=== PATIENT | male | born 2000 | race Caucasian/White ===

== ENCOUNTER → 2020-01-03 | Day surgery (SDC) | payer BC ==
[~2020-01-03] MED LIST: Heparin 1,000 UNITS/ML VIAL ONE
--- NOTE | 2020-01-03 17:02 | SPC ---
Catheter venogram left arm: DATE: 01/03/2020 HISTORY: 19-year-old male with sudden onset of left upper extremity pain and swelling. Catheter venogram was o rdered to rule out central venous tear of the axillary vein. Dr. Jorge discussed the recommendation by telephone with Dr. Demetrius Ruano of [facility] at 4:40 PM 01/03/2020 TECHNIQUE: Signed informed consent obtained. Tourniquet applied at proximal left arm. Left arm prepped and drape d in usual sterile fashion. 25-gauge needle used to apply buffered lidocaine. Under ultrasound guidance, the basilic vein was punctured using micropuncture technique. The needle was exchanged over the guidewire for a 4 Scottish dilator and sheath. Dilator was removed, and the 4 Scottish sheath was connected via plastic tubing to a series of contrast-filled syringes. The 4 Scottish dilator was inject ed during fluoroscopy. The patient's left upper extremity was elevated to facilitate flow into the proximal, central veins. Catheter was removed. Compression was held at the puncture site until hemost asis was achieved. Patient tolerated procedure well. No complications. FINDINGS: The ultrasound images demonstrate a very dilated basilic vein. The double brachial veins are not sign ificantly dilated. There is contrast opacification of the basilic vein and axillary vein, and reflux into at least one o f the double brachial veins. There is no extravasation. Contrast opacification of the left subclavian vein was not achieved. IMPRESSION: 1. No tear, no extravasation of basilic vein or axillary vein. 2. Dilation of the basilic vein. 3. Nonopacification of the subclavian vein after 60 mL of contrast injection. This could be due to th e fact that contrast flow is very slow in venous structures. However, the possibility of spontaneous thrombosis of the left subclavian vein cannot be excluded. Recommend dedicated Doppler ul trasound of the left subclavian vein and/or review of the recent CT pulmonary angiogram ( performed at [facility]) with radiologist to evaluate the left subclavian vein.
== END ==
LOC: ULT 14:19 → SPEC 14:20
PROVIDERS: ATTEND Family Medicine
PROC: B51N1ZZ Fluoroscopy of Left Upper Extremity Veins using Low Osmolar Contrast (ICD-10-PCS; principal; 2020-01-03)
DX: M79.602 Pain in left arm (principal); M79.89 Other specified soft tissue disorders
CPT/HCPCS: 36005; 75820; J1644